=== PATIENT | male | born 1980 | race Caucasian/White ===

== ENCOUNTER 2016-05-15 21:26 | Emergency (ER) | payer SELFPAY ==
[2016-05-15 21:41] VITALS: BP 122/66; PULSE 79; RESP 18; TEMP 97
[2016-05-15] MEDS ORDERED: HYDROcodone/APAP 5-325MG 1 EACH TAB PO STA (23:01)
--- NOTE | 2016-05-15 23:03 | ED ---
ENT HPI - General Chief complaint: Dental/Oral Stated complaint: dental pain Time Seen by Provider: 05/15/16 22:21 Source: patient, RN notes reviewed Mode of arrival: ambulatory Limitations: no limitations - History of Present Illness Initial comments: Patient is a 35-year-old male who presents to the emergency room for evaluation of dental pain. Patient states he began having abdominal pain about a week ago. Patient states he went to [facility] and they place him on a starter pack of Pen-Vee K. Patient states the Pen-Vee K has not been helping so he stopped taking it. Patient states she has not followed up with a dentist yet. Patient states the pain became getting worse throughout the day today. Patient states been taking ibuprofen with no relief of symptoms. Patient states the pain is radiating from his left upper tooth into his left ear. Patient states he thinks broke his tooth. Patient denies any fevers or chills. Patient denies any facial swelling. Patient denies nausea or vomiting. - Related Data Previous Rx's Medication Instructions Recorded Fluticasone Nasal [place] [Flonase 1 spray EA NOSTRIL DAILY PRN #1 11/24/15 Nasal [place]] bottle Promethaz-Cod 6.25-10 mg/5 ml 5 ml PO Q6HR PRN #35 ml 11/24/15 [Phenergan with Codeine] guaiFENesin [Mucinex] 1,200 mg PO BID PRN #14 tab.er.12h 11/24/15 Clindamycin [Cleocin] 300 mg PO Q6H 7 Days 05/15/16 HYDROcodone/APAP 5-325MG [[place] 1 tab PO Q6HR PRN #10 tab 05/15/16 5-325] Allergies Allergy/AdvReac Type Severity Reaction Status Date / Time No Known Allergies Allergy Verified 05/15/16 21:40 Review of Systems ROS Statement: Those systems with pertinent positive or pertinent negative responses have been documented in the HPI. ROS Other: All systems not noted in ROS Statement are negative. Past Medical History Past Medical History: No Reported History History of Any Multi-Drug Resistant Organisms: None Reported Past Surgical History: No Surgical Hx Reported Past Psychological History: No Psychological Hx Reported Smoking Status: Never smoker Past Alcohol Use History: None Reported Past Drug Use History: None Reported General Exam - General Exam Comments Initial Comments: Sitting on exam bed in no acute distress. Limitations: no limitations General appearance: alert, in no apparent distress Head exam: Present: atraumatic, normocephalic, normal inspection Eye exam: Present: normal appearance Expanded Mouth exam: Present: normal external inspection Teeth exam: Present: dental tenderness # (14) Throat exam: normal inspection Neck exam: Present: normal inspection Respiratory exam: Absent: respiratory distress Extremities exam: Present: normal inspection Back exam: Present: normal inspection Neurological exam: Present: alert, oriented X3, CN II-XII intact, normal gait Psychiatric exam: Present: normal affect, normal mood Skin exam: Present: warm, dry, intact, normal color. Absent: rash Course Vital Signs 05/15/16 21:38 Temperature 97.0 F L Pulse Rate 79 Respiratory 18 Rate Blood Pressure 122/66 O2 Sat by Pulse 97 Oximetry Medical Decision Making - Medical Decision Making Patient is a 35-year-old male presents emergency room for a recent dental pain. Will start patient on clindamycin and pain medications and advised him to follow -up with a dentist. Patient states he understands everything that was discussed with him. Return parameters discussed. Disposition Clinical Impression: Pain, dental Disposition: HOME SELF-CARE Condition: Good Instructions: Toothache (ED) Additional Instructions: Please follow up with a dentist. If you do not have a dentist, you may contact [facility]. Phone number is [phone] for existing clients. For new clients you may call [phone]. Another option is you have is the [employer] [facility]. Phone number is [phone]. Medications as directed. [place] gargles. Cold fluids can sometimes help with pain as well. Return to the Emergency Room for any worsening or changing symptoms. Use cold compresses to the outside of the face. Prescriptions: HYDROcodone/APAP 5-325MG [[place] 5-325] 1 tab PO Q6HR PRN #10 tab PRN Reason: Pain Clindamycin [Cleocin] 300 mg PO Q6H 7 Days Referrals: None,Stated [Primary Care Provider] - 1-2 days Time of Disposition: 23:02
== END 2016-05-15 23:15 | disposition home or self-care (01) ==
LOC: EC 21:26
DX: K08.89 Other specified disorders of teeth and supporting structures (principal); R10.9 Unspecified abdominal pain; H92.02 Otalgia, left ear
CPT/HCPCS: 99282

== ENCOUNTER 2017-01-23 15:00 | Emergency (ER) | payer OTHER ==
[2017-01-23 15:14] VITALS: BP 128/59; PULSE 72; RESP 18; TEMP 97.8
[2017-01-23] MEDS ORDERED: NAPROXEN 250 MG TAB PO STA (16:31)
[2017-01-23] MEDS ORDERED: diphenhydrAMINE 50 MG CAP PO STA (16:31)
[2017-01-23] MEDS ORDERED: PROCHLORPERAZINE 5 MG TAB PO STA (16:35)
--- NOTE | 2017-01-23 16:35 | ED ---
General Adult HPI - General Chief complaint: Headache Stated complaint: headaches Time Seen by Provider: 01/23/17 16:24 Source: patient, RN notes reviewed Mode of arrival: ambulatory Limitations: no limitations - History of Present Illness Initial comments: Patient 36-year-old male significant past medical history for migraine headaches , who presents emergency room today with a chief complaint of a migraine to the back of his head. Patient states this started last night. He does admit to some nausea. He states consistent with headaches that is had in the past. Patient denies any new symptoms today. Denies any other complaints or symptoms at this time. Patient denies any recent fever, chills, shortness of breath, chest pain, back pain, abdominal pain, vomiting, numbness or tingling, dysuria or hematuria, constipation or diarrhea, visual changes, or any other complaints. - Related Data Previous Rx's Medication Instructions Recorded Fluticasone Nasal [place] [Flonase 1 spray EA NOSTRIL DAILY PRN #1 11/24/15 Nasal [place]] bottle Promethaz-Cod 6.25-10 mg/5 ml 5 ml PO Q6HR PRN #35 ml 11/24/15 [Phenergan with Codeine] guaiFENesin [Mucinex] 1,200 mg PO BID PRN #14 tab.er.12h 11/24/15 Clindamycin [Cleocin] 300 mg PO Q6H 7 Days capsule 05/15/16 HYDROcodone/APAP 5-325MG [[place] 1 tab PO Q6HR PRN #10 tab 05/15/16 5-325] Naproxen [Naprosyn] 500 mg PO BID #20 tablet 01/23/17 Allergies Allergy/AdvReac Type Severity Reaction Status Date / Time No Known Allergies Allergy Verified 01/23/17 15:14 Review of Systems ROS Statement: Those systems with pertinent positive or pertinent negative responses have been documented in the HPI. ROS Other: All systems not noted in ROS Statement are negative. Past Medical History Past Medical History: No Reported History Additional Past Medical History / Comment(s): migraine hobbs History of Any Multi-Drug Resistant Organisms: None Reported Past Surgical History: No Surgical Hx Reported Past Psychological History: No Psychological Hx Reported Smoking Status: Never smoker Past Alcohol Use History: None Reported Past Drug Use History: None Reported General Exam - General Exam Comments Initial Comments: General: The patient is awake and alert, in no distress, and does not appear acutely ill. Eye: Pupils are equal, round and reactive to light, extra-ocular movements are intact. No nystagmus. There is normal conjunctiva bilaterally. No signs of icterus. Ears, nose, mouth and throat: There are moist mucous membranes and no oral lesions. Neck: The neck is supple, there is no tenderness or JVD. Cardiovascular: There is a regular rate and rhythm. No murmur, rub or gallop is appreciated. Respiratory: Lungs are clear to auscultation, respirations are non-labored, breath sounds are equal. No wheezes, stridor, rales, or rhonchi. Musculoskeletal: Normal ROM, no tenderness. Strength 5/5. Sensation intact. Pulses equal bilaterally 2+. Neurological: A&O x 3. CN II-XII intact, There are no obvious motor or sensory deficits. Coordination appears grossly intact. Speech is normal. Skin: Skin is warm and dry and no rashes or lesions are noted. Psychiatric: Cooperative, appropriate mood & affect, normal judgment. Limitations: no limitations Course Vital Signs 01/23/17 15:12 Temperature 97.8 F Pulse Rate 72 Respiratory 18 Rate Blood Pressure 128/59 O2 Sat by Pulse 96 Oximetry Medical Decision Making - Medical Decision Making options discussed with patient about treatment with IV medication versus by mouth. He states he would like the just have pills. States he does not want have an IV. Patient does admit that this headache is consistent with headaches that is had in the past. A be treated with Compazine, Benadryl, naproxen. He' ll be given a prescription for naproxen ago with burning rebound headache. Disposition Clinical Impression: Migraine Disposition: HOME SELF-CARE Condition: Good Instructions: Acute Headache (ED) Additional Instructions: Please use medication as discussed. Please follow-up with family doctor in the next 2 days of symptoms have not improved. Please return to emergency room if the symptoms increase or worsen or for any other concerns. Prescriptions: Naproxen [Naprosyn] 500 mg PO BID #20 tablet Referrals: Yenifer Brown MD [Primary Care Provider] - 1-2 days Time of Disposition: 16:34
== END 2017-01-23 16:50 | disposition home or self-care (01) ==
LOC: EC 15:00
DX: G43.909 Migraine, unspecified, not intractable, without status migrainosus (principal)
CPT/HCPCS: 99283; S0183

== ENCOUNTER 2018-05-25 22:09 | Emergency (ER) | payer OTHER ==
[2018-05-25 22:25] VITALS: BP 136/89; PULSE 91; RESP 18; TEMP 98.6
[2018-05-25] MEDS ORDERED: AZITHROMYCIN 500 MG TAB PO STA (23:15)
[2018-05-25] MEDS ORDERED: cefTRIAXone 250 MG VIAL IM STA (23:15)
--- NOTE | 2018-05-25 23:19 | ED ---
General Adult HPI - General Chief complaint: Urogenital Stated complaint: STD testing Time Seen by Provider: 05/25/18 22:34 Source: patient, RN notes reviewed, old records reviewed Mode of arrival: ambulatory Limitations: no limitations - History of Present Illness Initial comments: 37-year-old male presents for evaluation of possible STD. Patient states he was told his ex- may have sexual transmitted disease. Patient denies any symptoms, no dysuria, no penile lesions. No posterior show symptoms. No fever chills. No hematuria. Patient has no previous history of STDs. He has not been sexually active with his ex- in the past one month. - Related Data Previous Rx's Medication Instructions Recorded Fluticasone Nasal [place] [Flonase 1 spray EA NOSTRIL DAILY PRN #1 11/24/15 Nasal [place]] bottle Promethaz-Cod 6.25-10 mg/5 ml 5 ml PO Q6HR PRN #35 ml 11/24/15 [Phenergan with Codeine] guaiFENesin [Mucinex] 1,200 mg PO BID PRN #14 tab.er.12h 11/24/15 Clindamycin [Cleocin] 300 mg PO Q6H 7 Days capsule 05/15/16 HYDROcodone/APAP 5-325MG [[place] 1 tab PO Q6HR PRN #10 tab 05/15/16 5-325] Naproxen [Naprosyn] 500 mg PO BID #20 tablet 01/23/17 Allergies Allergy/AdvReac Type Severity Reaction Status Date / Time No Known Allergies Allergy Verified 05/25/18 22:25 Review of Systems ROS Statement: Those systems with pertinent positive or pertinent negative responses have been documented in the HPI. ROS Other: All systems not noted in ROS Statement are negative. Past Medical History Past Medical History: No Reported History Additional Past Medical History / Comment(s): migraine hobbs History of Any Multi-Drug Resistant Organisms: None Reported Past Surgical History: No Surgical Hx Reported Past Psychological History: No Psychological Hx Reported Smoking Status: Never smoker Past Alcohol Use History: None Reported Past Drug Use History: None Reported General Exam Limitations: no limitations Course Vital Signs 05/25/18 22:22 Temperature 98.6 F Pulse Rate 91 Respiratory 18 Rate Blood Pressure 136/89 O2 Sat by Pulse 97 Oximetry Medical Decision Making - Medical Decision Making 37 -year-old male presenting for evaluation of STDs. Patient is informed that we only will be testing for gonorrhea and chlamydia. Patient prefers to be treated for both gonorrhea and chlamydia. He is informed that we are not testing for syphilis, herpes, HIV. He will need follow-up with his primary care physician regarding further testing. Patient wishes to be treated today, will be given azithromycin and ceftriaxone. Urinalysis, urine culture, GC, chlamydia PCR will be obtained. These are pending. Disposition Clinical Impression: STD exposure Disposition: HOME SELF-CARE Condition: Good Instructions (If sedation given, give patient instructions): Sexually Transmitted Diseases (ED) Is patient prescribed a controlled substance at d/c from ED?: No Referrals: Yenifer Brown MD [Primary Care Provider] - 1-2 days Time of Disposition: 23:19
[2018-05-25 23:29] LABS: Appearance,Urine Clear (Clear); Bilirubin,Urine Negative (Negative); Blood,Urine Negative (Negative); Color,Urine Yellow; Glucose,Urine (UA) Negative (Negative); Ketones,Urine Negative (Negative); Leukocyte Esterase,Urine Small (Negative); Mucus,Urine Few /hpf; Nitrite,Urine Negative (Negative); PH, Urine 5.5 (5.0-8.0); Protein,Urine Trace (Negative); RBC,Urine 1 /hpf (0-5); Specific Gravity,Urine 1.031 (1.001-1.035); Squamous Epithelial Cell,Urine 1 /hpf (0-4); Urobilinogen,Urine <2.0 mg/dL (<2.0); WBC,Urine 10 /hpf (0-5)
--- NOTE | 2018-05-27 05:10 | CDI ---
Dear Damian Myrick MD: Please do addendum Physical Examination. Thank you, Lamin Coleman, Human Resources Vice President. If you have any questions, please contact Medical Staff Coordinator at [phone]. [facility]
[2018-05-28 15:18] LABS: C. trachomatis,PCR Negative (Neg,Equiv); Chlamydia trachomatis Source Urine
[2018-05-28 15:35] LABS: N. gonorrhoeae,PCR Negative (Neg,Equiv); Neisseria Source Urine
== END 2018-05-25 23:53 | disposition home or self-care (01) ==
LOC: EC 22:09
DX: Z20.2 Contact with and (suspected) exposure to infections with a predominantly sexual mode of transmission (principal)
CPT/HCPCS: 99284; 96372; 81001; 87491; 87591; 87086; J0696

== ENCOUNTER 2018-09-08 14:35 | Emergency (ER) | payer OTHER ==
[2018-09-08 14:41] VITALS: RESP 18
[2018-09-08] MEDS ORDERED: ASPIRIN 325 MG TAB PO STA (14:44)
--- NOTE | 2018-09-08 15:20 | ED ---
General Adult HPI - General Chief complaint: Dizziness Stated complaint: Palpitations Time Seen by Provider: 09/08/18 14:43 Source: patient Mode of arrival: ambulatory Limitations: no limitations - History of Present Illness Initial comments: 38-year-old male presenting for lightheadedness and chest pain. Patient states yesterday between 11-12PM he experienced a sharp pinch in his chest left-sided. He states it lasted about 30 minutes and subsided. He states it began again about 30 minute prior to arrival he states this concerned him and he presents emergency department for evaluation. Patient states he does not feel short of breath today he states he did feel slightly short of breath yesterday. Patient denies history of smoking diabetes or hypertension plan. Patient denies history of coronary artery disease within the family history. Patient denies any premature cardiac , or unexpected or unexplained in family. Patient denies unilateral leg swelling history of pulmonary embolism or DVT denies any clotting disorders, patient denies any hormone use, denies recent surgeries or immobilization, denies recent fractures, patient denies hemoptysis, leg swelling or history of cancer. Patient denies IV drug use fever chills night sweats cough. Patient states he is not sure if his symptoms are related to his recent break up with girlfriend who left him for his ex two days prior. He states he has been stressed. She denies any patterns with the chest pain he states occurred last night. He denies any recent exertional chest pain or shortness of breath. Upon arrival patient denies current chest pain, remaining ROS (-). - Related Data Home Medications Medication Instructions Recorded Confirmed No Known Home Medications 09/08/18 09/08/18 Allergies Allergy/AdvReac Type Severity Reaction Status Date / Time No Known Allergies Allergy Verified 09/08/18 15:02 Review of Systems ROS Statement: Those systems with pertinent positive or pertinent negative responses have been documented in the HPI. ROS Other: All systems not noted in ROS Statement are negative. Past Medical History Past Medical History: No Reported History Additional Past Medical History / Comment(s): migraine hobbs History of Any Multi-Drug Resistant Organisms: None Reported Past Surgical History: No Surgical Hx Reported Past Psychological History: No Psychological Hx Reported Smoking Status: Never smoker Past Alcohol Use History: None Reported Past Drug Use History: None Reported General Exam - General Exam Comments Initial Comments: General: The patient is awake and alert, in no distress, and does not appear acutely ill. Eye: Pupils are equal, round and reactive to light, extra-ocular movements are intact. No nystagmus. There is normal conjunctiva bilaterally. No signs of icterus. Ears, nose, mouth and throat: There are moist mucous membranes and no oral le sions. Neck: The neck is supple, there is no tenderness or JVD. Cardiovascular: There is a regular rate and rhythm. No murmur, rub or gallop is appreciated. Respiratory: Lungs are clear to auscultation, respirations are non-labored, breath sounds are equal. No wheezes, stridor, rales, or rhonchi. Gastrointestinal: Soft, non-distended, non-tender abdomen without masses or organomegaly noted. There is no rebound or guarding present. No CVA tenderness. Bowel sounds are unremarkable. Musculoskeletal: Normal ROM, no tenderness. Strength 5/5. Sensation intact. Radial and DP pulses equal bilaterally 2+. No LE edema Neurological: A&O x 3. CN II-XII intact, There are no obvious motor or sensory deficits. Coordination appears grossly intact. Speech is normal. Skin: Skin is warm and dry and no rashes or lesions are noted. Psychiatric: Cooperative, appropriate mood & affect, normal judgment. Limitations: no limitations Course Vital Signs 09/08/18 09/08/18 09/08/18 14:37 15:00 16:00 Temperature 97.9 F Pulse Rate 95 72 88 Respiratory 18 18 18 Rate Blood Pressure 134/78 126/87 130/88 O2 Sat by Pulse 98 99 99 Oximetry 09/08/18 16:51 Temperature 98.1 F Pulse Rate 75 Respiratory 18 Rate Blood Pressure 130/89 O2 Sat by Pulse 100 Oximetry EKG Findings - EKG Comments: EKG Findings:: Ventricular rate 76 bpm, DE interval 160 ms, QRS duration 80 ms. QT/QTC 370/416. Right axis noted. No ST elevation or depression. No T-wave inversion. Artifact noted. No acute findings. Medical Decision Making - Medical Decision Making 38yo male without PMH, presenting with sharp chest pain on off x 1 day. Patient states he is stressed, feel anxious since break up with ex. Chest pain appears atypical in nature. EKG no findings consistent with ACS. Trop (-). CXR (-). PERC (-). No findings on PE. No leg swelling. No murmur. Lungs clear. Patient denies current symptoms. Patinet requesting discharge. After discussing case and reviewing EKG with attending Dr. Oropeza we feel patient stable for discharge with outpatient PCP f/u. Patient agreeable with return parameters and pcp f/u. - Lab Data Result diagrams: 09/08/18 15:05 09/08/18 15:05 Lab Results 09/08/18 09/08/18 09/08/18 Range/Units 15:05 15:05 15:05 WBC 8.8 (3.8-10.6) k/uL RBC 5.78 (4.30-5.90) m/uL Hgb 15.9 (13.0-17.5) gm/dL Hct 48.8 (39.0-53.0) % MCV 84.4 (80.0-100.0) fL MCH 27.5 (25.0-35.0) pg MCHC 32.6 (31.0-37.0) g/dL RDW 13.0 (11.5-15.5) % Plt Count 193 (150-450) k/uL Neutrophils % 71 % Lymphocytes % 21 % Monocytes % 5 % Eosinophils % 1 % Basophils % 0 % Neutrophils # 6.2 (1.3-7.7) k/uL Lymphocytes # 1.9 (1.0-4.8) k/uL Monocytes # 0.4 (0-1.0) k/uL Eosinophils # 0.1 (0-0.7) k/uL Basophils # 0.0 (0-0.2) k/uL PT 10.6 (9.0-12.0) sec INR 1.0 (<1.2) APTT 27.8 (22.0-30.0) sec Sodium 142 (137-145) mmol/L Potassium 4.1 (3.5-5.1) mmol/L Chloride 108 H (98-107) mmol/L Carbon Dioxide 25 (22-30) mmol/L Anion Gap 9 mmol/L BUN 14 (9-20) mg/dL Creatinine 0.93 (0.66-1.25) mg/dL Est GFR (CKD-EPI)AfAm >90 (>60 ml/min/1.73 sqM) Est GFR (CKD-EPI)NonAf >90 (>60 ml/min/1.73 sqM) Glucose 100 H (74-99) mg/dL Calcium 9.4 (8.4-10.2) mg/dL Magnesium 2.0 (1.6-2.3) mg/dL Total Bilirubin 0.8 (0.2-1.3) mg/dL AST 23 (17-59) U/L ALT 29 (21-72) U/L Alkaline Phosphatase 63 (38-126) U/L Troponin I (0.000-0.034) ng/mL Total Protein 7.2 (6.3-8.2) g/dL Albumin 4.3 (3.5-5.0) g/dL / Range/Units 15:05 WBC (3.8-10.6) k/uL RBC (4.30-5.90) m/uL Hgb (13.0-17.5) gm/dL Hct (39.0-53.0) % MCV (80.0-100.0) fL MCH (25.0-35.0) pg MCHC (31.0-37.0) g/dL RDW (11.5-15.5) % Plt Count (150-450) k/uL Neutrophils % % Lymphocytes % % Monocytes % % Eosinophils % % Basophils % % Neutrophils # (1.3-7.7) k/uL Lymphocytes # (1.0-4.8) k/uL Monocytes # (0-1.0) k/uL Eosinophils # (0-0.7) k/uL Basophils # (0-0.2) k/uL PT (9.0-12.0) sec INR (<1.2) APTT (22.0-30.0) sec Sodium (137-145) mmol/L Potassium (3.5-5.1) mmol/L Chloride (98-107) mmol/L Carbon Dioxide (22-30) mmol/L Anion Gap mmol/L BUN (9-20) mg/dL Creatinine (0.66-1.25) mg/dL Est GFR (CKD-EPI)AfAm (>60 ml/min/1.73 sqM) Est GFR (CKD-EPI)NonAf (>60 ml/min/1.73 sqM) Glucose (74-99) mg/dL Calcium (8.4-10.2) mg/dL Magnesium (1.6-2.3) mg/dL Total Bilirubin (0.2-1.3) mg/dL AST (17-59) U/L ALT (21-72) U/L Alkaline Phosphatase (38-126) U/L Troponin I <0.012 (0.000-0.034) ng/mL Total Protein (6.3-8.2) g/dL Albumin (3.5-5.0) g/dL Disposition Clinical Impression: Atypical chest pain, Stress Disposition: HOME SELF-CARE Condition: Good Instructions (If sedation given, give patient instructions): Chest Pain (ED), Noncardiac Chest Pain (ED) Additional Instructions: Please use medication as discussed. Please follow-up with family doctor in the next 2 days. Please return to emergency room if the symptoms increase or worsen or for any other concerns. Is patient prescribed a controlled substance at d/c from ED?: No Referrals: Yenifer Brown MD [Primary Care Provider] - 1-2 days Time of Disposition: 16:38
[2018-09-08 15:22] LABS: Basophils % (A) 0 %; Eosinophils # (A) 0.1 k/uL (0-0.7); Eosinophils % (A) 1 %; HCT 48.8 % (39.0-53.0); HGB 15.9 gm/dL (13.0-17.5); Lymphocytes # (A) 1.9 k/uL (1.0-4.8); Lymphocytes % (A) 21 %; MCH 27.5 pg (25.0-35.0); MCHC 32.6 g/dL (31.0-37.0); MCV 84.4 fL (80.0-100.0); Mean Platelet Volume 8.6; Monocytes # (A) 0.4 k/uL (0-1.0); Monocytes % (A) 5 %; Neutrophils # (A) 6.2 k/uL (1.3-7.7); Neutrophils % (A) 71 %; Platelet Count 193 k/uL (150-450); RBC 5.78 m/uL (4.30-5.90); WBC 8.8 k/uL (3.8-10.6)
[2018-09-08 15:32] LABS: ALT 29 U/L (21-72); AST 23 U/L (17-59); African American GFR (CKD) >90 (>60 ml/min/1.73 sqM); Albumin 4.3 g/dL (3.5-5.0); Alkaline Phosphatase 63 U/L (38-126); Anion Gap 9 mmol/L; Blood Urea Nitrogen 14 mg/dL (9-20); Calcium 9.4 mg/dL (8.4-10.2); Carbon Dioxide 25 mmol/L (22-30); Chloride 108 mmol/L (98-107); Glucose 100 mg/dL (74-99); Potassium 4.1 mmol/L (3.5-5.1); Sodium 142 mmol/L (137-145); Total Bilirubin 0.8 mg/dL (0.2-1.3); Total Protein 7.2 g/dL (6.3-8.2)
[2018-09-08 15:35] LABS: Partial Thromboplastin Time 27.8 sec (22.0-30.0); Prothrombin Time 10.6 sec (9.0-12.0)
--- NOTE | 2018-09-08 16:15 | XR ---
EXAMINATION TYPE: XR chest 2V DATE OF EXAM: 09/08/2018 COMPARISON: Chest x-ray November 24, 2015. HISTORY: Chest pain and dizziness. TECHNIQUE: Frontal and lateral views of the chest are obtained. FINDINGS: Overlying EKG leads are seen. There is no focal air space opacity, pleural effusion, or pn eumothorax seen. The cardiac silhouette size is within normal limits. The osseous structures are i ntact. IMPRESSION: No acute cardiopulmonary process. No significant change from prior.
[2018-09-08 16:52] VITALS: BP 130/89; PULSE 75; TEMP 98.1
== END 2018-09-08 16:51 | disposition home or self-care (01) ==
LOC: EC 14:35
DX: R07.89 Other chest pain (principal); Z63.0 Problems in relationship with spouse or partner; R42 Dizziness and giddiness
CPT/HCPCS: 36415; 71046; 80053; 83735; 84484; 85025; 85610; 85730; 93005; 99284

== ENCOUNTER 2019-05-21 21:46 | Emergency (ER) | payer OTHER ==
[2019-05-21] MEDS ORDERED: KETOROLAC 30 MG/ML 1 ML VIAL IM STA (22:22)
--- NOTE | 2019-05-21 22:40 | XR ---
EXAMINATION TYPE: XR wrist complete RT DATE OF EXAM: 05/21/2019 COMPARISON: NONE HISTORY: Pain TECHNIQUE: 4 views FINDINGS: Carpal bones are intact. I see no fracture nor dislocation. Joint spaces are normal. Metaca rpals appear intact. IMPRESSION: Negative right wrist exam.
--- NOTE | 2019-05-21 23:16 | ED ---
Extremity Problem HPI - General Chief complaint: Extremity Problem,Nontraumatic Stated complaint: R Wrist Pain Time Seen by Provider: 05/21/19 21:52 Source: patient Mode of arrival: ambulatory Limitations: no limitations - History of Present Illness Initial comments: Patient is a 38-year-old male presenting to the emergency department with a chief complaint of right wrist pain. Patient states over the past 2-3 days he developed swelling on the posterior aspect aspect of the right wrist, localized mostly to the radial region. 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 Patient states he is right-handed. Denies any trauma to the region. States limited range of motion with extension of the wrist. Patient states limited range of motion with extension of the thumb as well. Denies any erythema or ecchymosis in the region. Does report taken [id number] analgesics with some improvement of symptoms at home. No previous surgery to the hand. - Related Data Home Medications Medication Instructions Recorded Confirmed No Known Home Medications 09/08/18 09/08/18 Allergies Allergy/AdvReac Type Severity Reaction Status Date / Time No Known Allergies Allergy Verified 05/21/19 21:50 Review of Systems ROS Statement: Those systems with pertinent positive or pertinent negative responses have been documented in the HPI. ROS Other: All systems not noted in ROS Statement are negative. Past Medical History Past Medical History: No Reported History Additional Past Medical History / Comment(s): migraine hobbs History of Any Multi-Drug Resistant Organisms: None Reported Past Surgical History: No Surgical Hx Reported Past Psychological History: No Psychological Hx Reported Smoking Status: Never smoker Past Alcohol Use History: None Reported Past Drug Use History: None Reported General Exam Limitations: no limitations General appearance: alert, in no apparent distress Head exam: Present: atraumatic, normocephalic, normal inspection Eye exam: Present: normal appearance, PERRL, EOMI Pupils: Present: normal accommodation ENT exam: Present: normal exam Neck exam: Present: normal inspection, full ROM Respiratory exam: Present: normal lung sounds bilaterally Cardiovascular Exam: Present: regular rate, normal rhythm, normal heart sounds Extremities exam: Present: tenderness (Tenderness along the region of swelling. Tenderness along the radial aspect of her right wrist.), normal capillary refill, other (+2 ulnar and radial pulses bilaterally.). Absent: normal inspection (Mild swelling on the posterior aspect her right wrist near the radial region. No ecchymosis or erythema. No signs of trauma.), full ROM (Limited range of motion with extension of the right wrist or extension of the thumb.) Back exam: Present: normal inspection, full ROM Neurological exam: Present: alert, oriented X3 Psychiatric exam: Present: normal affect, normal mood Skin exam: Present: warm, dry, intact, normal color Course Vital Signs 05/21/19 21:48 Temperature 98.4 F Pulse Rate 91 Respiratory 18 Rate Blood Pressure 125/85 O2 Sat by Pulse 98 Oximetry Procedures - Orthopedic Splinting/Casting Injury #1 Side: right Upper Extremity Injury Location: wrist Upper Extremity Immobilizer: Fabián wrap Medical Decision Making - Medical Decision Making Patient is a 38-year-old male presenting to emergency Department with a chief complaint right wrist pain or exam patient does have a negative Tylenol and negative Phalen test. Patient does have a positive Fabiola test. Patient does have swelling along the radial aspect of the right wrist. X-rays are unremarkable. 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 Patient is right-handed. I suspect the patient has the dequervian tenosynovitis. Fabián wrap was applied to the region. Patient advised to continue with ibuprofen 3 times a day as needed. Patient was advised to remove the Fabián wrap multiple times per day and move the wrist and full range of motion. Patient was advised to apply ice compresses well. Patient was advised to follow-up with investor relations specialist if symptoms not improved. Return parameters thoroughly discussed with patient was understanding and agreeable. Case discussed with physician. Disposition Clinical Impression: De Quervain's disease (radial styloid tenosynovitis), Wrist pain, right Disposition: HOME SELF-CARE Condition: Stable Instructions (If sedation given, give patient instructions): DeQuervain Release (DC) Additional Instructions: Take ibuprofen 3 times per day as needed. Apply ice compress. Make sure to remove the Fabián wrap and rotate your wrist to full range of motion. Follow-up with an investor relations specialist if symptoms not improved. Return to emergency department if symptoms worsen. Is patient prescribed a controlled substance at d/c from ED?: No Referrals: Yenifer Brown MD [Primary Care Provider] - 1-2 days Time of Disposition: 23:16
[2019-05-21 23:18] VITALS: BP 126/87; PULSE 71; RESP 16; TEMP 98.3
== END 2019-05-21 23:20 | disposition home or self-care (01) ==
LOC: EC 21:46
DX: M65.4 Radial styloid tenosynovitis [de Quervain] (principal)
CPT/HCPCS: 73110; 99283; 96372; J1885

== ENCOUNTER 2019-05-28 23:50 | Emergency (ER) | payer OTHER ==
[2019-05-28 23:58] VITALS: BP 144/93; PULSE 74; RESP 18; TEMP 97.5
--- NOTE | 2019-05-29 00:08 | ED ---
ENT HPI - General Chief complaint: Dental/Oral Stated complaint: Jaw/tooth pain Time Seen by Provider: 05/28/19 23:58 Source: patient, family Mode of arrival: ambulatory Limitations: no limitations - History of Present Illness Initial comments: 38-year-old male presenting today for chief complaint of right lower dental pain. Patient states that he has had right lower dental pain for the past few days, he states he had the tooth next to it pulled 2 weeks ago, it seemed to heal. But he states they were supposed to take the took that is problematic now 2 weeks ago. patient has attempted to call multiple dental offices which are closed secondary to pandemic. Patient denies fever, facial or neck swelling, denies swelling below tongue, difficulty opening mouth, nor swallowing. - Related Data Previous Rx's Medication Instructions Recorded Penicillin V Potassium [Pen Vee K] 500 mg PO QID 7 Days #28 tablet 05/29/19 Allergies Allergy/AdvReac Type Severity Reaction Status Date / Time No Known Allergies Allergy Verified 05/21/19 21:50 Review of Systems ROS Statement: Those systems with pertinent positive or pertinent negative responses have been documented in the HPI. ROS Other: All systems not noted in ROS Statement are negative. Past Medical History Past Medical History: No Reported History Additional Past Medical History / Comment(s): migraine hobbs History of Any Multi-Drug Resistant Organisms: None Reported Past Surgical History: No Surgical Hx Reported Past Psychological History: No Psychological Hx Reported Smoking Status: Never smoker Past Alcohol Use History: None Reported Past Drug Use History: None Reported General Exam - General Exam Comments Initial Comments: General: The patient is awake and alert, in no distress, and does not appear acutely ill. Eye: +3 mm pupils are equal, round and reactive to light, extra-ocular movements are intact. No nystagmus. There is normal conjunctiva bilaterally. No signs of icterus. Ears, nose, mouth and throat: There are moist mucous membranes, tooth #28 has no adjacent looks once her swelling is tender to percussion. There is no swelling below the tongue or below the angle of the mandible. No trismus. Patient tolerating oral secretions. Uvula midline. Neck: The neck is supple, there is no tenderness or JVD. Musculoskeletal: Normal ROM, no tenderness. Strength 5/5. Sensation intact. Radila pulses equal bilaterally 2+. Neurological: A&O x 3. CN II-XII intact grossly, There are no obvious motor or sensory deficits. Coordination appears grossly intact. Speech is normal. Skin: Skin is warm and dry and no rashes or lesions are noted. Psychiatric: Cooperative, appropriate mood & affect, normal judgment. Limitations: no limitations Course Vital Signs 05/28/19 23:54 Temperature 97.5 F L Pulse Rate 74 Respiratory 18 Rate Blood Pressure 144/93 O2 Sat by Pulse 97 Oximetry Medical Decision Making - Medical Decision Making 38-year-old male presented for right lower dental pain. Patient had no signs of Eulalio's angina or systemic spread of infection he appears well nontoxic. Patient will be discharged with antibiotic regimen and instruction to follow up with dentist for extraction of the tooth. Discussed return parameters importance of follow-up. Patient is provided resources for free and reduced as well as emergency clinics. Patient was agreeable to care plan and discharge at this time. Disposition Clinical Impression: Pain, dental Disposition: HOME SELF-CARE Condition: Good Instructions (If sedation given, give patient instructions): Dental Abscess (ED), Toothache (ED) Additional Instructions: Please use medication as discussed. Please follow-up with dentist as discussed, recommend going to [facility] if unable to get an appointment in [facility] as discussed. Please return to emergency room if the symptoms increase or worsen or for any other concerns-fevers, neck/face swelling, swelling below the tongue. Prescriptions: Penicillin V Potassium [Pen Vee K] 500 mg PO QID 7 Days #28 tablet Is patient prescribed a controlled substance at d/c from ED?: No Referrals: Yenifer Brown MD [Primary Care Provider] - 1-2 days Time of Disposition: 00:15
[2019-05-29] MEDS ORDERED: HYDROcodone/APAP 7.5-325MG 1 EACH TAB PO ONE (00:14)
[2019-05-29] MEDS ORDERED: ACET/COD 300 MG/30 MG STARTER PACK 6 TAB BTL PO STA (00:14)
[2019-05-29] MEDS ORDERED: PENICILLIN VK 500MG STARTER 4 TAB BTL PO STA (00:15)
== END 2019-05-29 00:34 | disposition home or self-care (01) ==
LOC: EC 23:50
DX: K08.89 Other specified disorders of teeth and supporting structures (principal); Z98.818 Other dental procedure status
CPT/HCPCS: 99283

== ENCOUNTER 2019-09-22 05:44 | Emergency (ER) | payer OTHER ==
[2019-09-22 05:50] VITALS: BP 132/82; PULSE 69; RESP 18; TEMP 98.3
[2019-09-22] MEDS ORDERED: ACET/COD 300 MG/30 MG STARTER PACK 6 TAB BTL PO STA (06:02)
[2019-09-22] MEDS ORDERED: AMOXIC-POT CLAV 875MG STARTER PACK 2 TAB BTL PO STA (06:02)
--- NOTE | 2019-09-22 06:16 | ED ---
ENT HPI - General Chief complaint: Dental/Oral Stated complaint: dental pain Time Seen by Provider: 09/22/19 06:00 Source: patient Mode of arrival: ambulatory Limitations: no limitations - History of Present Illness Initial comments: 39-year-old male presenting today for chief complaint of right upper dental pain began for the last 4 hours. Patient denies noting any draining areas or areas of swelling. Denies any swelling below the time of the neck difficulty breathing or swallowing denies any fever chills general malaise. Patient is no additional complaints he states he has had dental infections in the past. Patient denies any trauma to face/teeth. Patient appears nontoxic on arrival - Related Data Previous Rx's Medication Instructions Recorded Penicillin V Potassium [Pen Vee K] 500 mg PO QID 7 Days #28 tablet 05/29/19 Amoxic-Pot Clav 875-125Mg 1 tab PO Q12HR 7 Days #14 tab 09/22/19 [Augmentin 875-125] Allergies Allergy/AdvReac Type Severity Reaction Status Date / Time No Known Allergies Allergy Verified 09/22/19 05:50 Review of Systems ROS Statement: Those systems with pertinent positive or pertinent negative responses have been documented in the HPI. ROS Other: All systems not noted in ROS Statement are negative. Past Medical History Past Medical History: No Reported History Additional Past Medical History / Comment(s): migraine hobbs History of Any Multi-Drug Resistant Organisms: None Reported Past Surgical History: No Surgical Hx Reported Past Psychological History: No Psychological Hx Reported Past Alcohol Use History: None Reported Past Drug Use History: None Reported General Exam - General Exam Comments Initial Comments: General: The patient is awake and alert, in no distress, and does not appear acutely ill. Eye: Pupils are equal, round and reactive to light, extra-ocular movements are intact. No nystagmus. There is normal conjunctiva bilaterally. No signs of icterus. Ears, nose, mouth and throat: There are moist mucous membranes and no oral lesions. Pain to palpation with cracked crown of right upper most posterior molar, no swelling below tongue below the angle of the mandible. No tripoding or drooling tolerate oral secretions well. Evidence of adjacent fluctuant area of the gingiva near tooth of concern Neck: The neck is supple, there is no tenderness or JVD. Musculoskeletal: Normal ROM, no tenderness. Strength 5/5. Sensation intact. Pulses equal bilaterally 2+. Neurological: A&O x 3. CN II-XII intact, There are no obvious motor or sensory deficits. Coordination appears grossly intact. Speech is normal. Skin: Skin is warm and dry and no rashes or lesions are noted. Psychiatric: Cooperative, appropriate mood & affect, normal judgment. Limitations: no limitations Course Vital Signs 09/22/19 05:48 Temperature 98.3 F Pulse Rate 69 Respiratory 18 Rate Blood Pressure 132/82 O2 Sat by Pulse 97 Oximetry Medical Decision Making - Medical Decision Making Exam no abscess evident, cannot r/o periapical. No facial swellling. no signs of ludwigs angina. does not appear toxic. Patient denies fevers. Antibiotics initiated in ER, given tylenol #3 for pain control. Recommend dentist f/u in 24- 48 hours. Patient agreeable and was discharged appearing well. Return parameters discussed. Disposition Clinical Impression: Pain, dental Disposition: HOME SELF-CARE Condition: Good Instructions (If sedation given, give patient instructions): Toothache (ED) Additional Instructions: Please use medication as discussed. Please follow-up with dentist in next 24-48 hours. Please return to emergency room if the symptoms increase or worsen or for any other concerns. Prescriptions: Amoxic-Pot Clav 875-125Mg [Augmentin 875-125] 1 tab PO Q12HR 7 Days #14 tab Is patient prescribed a controlled substance at d/c from ED?: No Referrals: Yenifer Brown MD [Primary Care Provider] - 1-2 days Time of Disposition: 06:16
== END 2019-09-22 06:31 | disposition home or self-care (01) ==
LOC: EC 05:44
DX: K08.89 Other specified disorders of teeth and supporting structures (principal)
CPT/HCPCS: 99282

== ENCOUNTER 2020-01-25 01:24 | Emergency (ER) | payer OTHER ==
[2020-01-25 01:28] VITALS: BP 162/100; PULSE 67; RESP 18; TEMP 98
[2020-01-25] MEDS ORDERED: KETOROLAC 15 MG/ML 1 ML VIAL IM STA (01:39)
[2020-01-25] MEDS ORDERED: ACET/COD 300 MG/30 MG STARTER PACK 6 TAB BTL PO STA (01:39)
[2020-01-25] MEDS ORDERED: MORPHINE SULFATE 4 MG/ML SYRINGE IM STA (01:39)
[2020-01-25] MEDS ORDERED: AMOXIC-POT CLAV 875MG STARTER PACK 2 TAB BTL PO STA (01:39)
--- NOTE | 2020-01-25 01:46 | ED ---
General Adult HPI - General Chief complaint: Dental/Oral Stated complaint: Tooth pain Time Seen by Provider: 01/25/20 01:32 Source: patient Mode of arrival: ambulatory Limitations: no limitations - History of Present Illness Initial comments: 39-year-old male presents to emergency Department with complaints of dental pain, onset 3 hours prior to arrival. Patient states a tooth on his right lower jaw began to hurt more severely after brushing his teeth this evening. Reports a history of dental problems. Denies any trismus or difficulty swallowing. Denies facial swelling. Patient denies any recent rash, fever, chills, cough, shortness of breath, chest pain, abdominal pain, nausea, vomiting, diarrhea, constipation, back pain, numbness, tingling, dizziness, weakness, hematuria, dysuria, urinary urgency, urinary frequency, headache, visual changes, or any other complaints. - Related Data Previous Rx's Medication Instructions Recorded Penicillin V Potassium [Pen Vee K] 500 mg PO QID 7 Days #28 tablet 05/29/19 Amoxic-Pot Clav 875-125Mg 1 tab PO Q12HR 7 Days #14 tab 09/22/19 [Augmentin 875-125] Amoxic-Pot Clav 875-125Mg 1 tab PO Q12HR #20 tablet 01/25/20 [Augmentin 875-125] Ibuprofen [Motrin] 600 mg PO Q8HR PRN #30 tab 01/25/20 Allergies Allergy/AdvReac Type Severity Reaction Status Date / Time No Known Allergies Allergy Verified 01/25/20 01:28 Review of Systems ROS Statement: Those systems with pertinent positive or pertinent negative responses have been documented in the HPI. ROS Other: All systems not noted in ROS Statement are negative. Past Medical History Past Medical History: No Reported History Additional Past Medical History / Comment(s): migraine hobbs History of Any Multi-Drug Resistant Organisms: None Reported Past Surgical History: No Surgical Hx Reported Past Psychological History: No Psychological Hx Reported Smoking Status: Never smoker Past Alcohol Use History: None Reported Past Drug Use History: None Reported General Exam Limitations: no limitations General appearance: alert, in no apparent distress, other (Physical well- developed, well-nourished adult male patient in no acute distress. Vital signs upon presentation are temperature 98.0F, pulse 67, respirations 18, blood pressure 162/100, pulse ox 98% on room air.) Eye exam: Present: normal appearance, PERRL, EOMI. Absent: scleral icterus, conjunctival injection, periorbital swelling ENT exam: Present: mucous membranes moist, other (Very poor dentition, multiple dental caries, multiple fractured teeth. Gingiva is erythematous, swollen, no evidence for drainable abscess.). Absent: normal exam Neck exam: Absent: lymphadenopathy Respiratory exam: Present: normal lung sounds bilaterally. Absent: respiratory distress, wheezes, rales, rhonchi, stridor Cardiovascular Exam: Present: regular rate, normal rhythm, normal heart sounds. Absent: systolic murmur, diastolic murmur, rubs, gallop, clicks Neurological exam: Present: alert, oriented X3, CN II-XII intact Psychiatric exam: Present: normal affect, normal mood Skin exam: Present: warm, dry, intact, normal color. Absent: rash Course Vital Signs 01/25/20 01:26 Temperature 98.0 F Pulse Rate 67 Respiratory 18 Rate Blood Pressure 162/100 O2 Sat by Pulse 98 Oximetry Medical Decision Making - Medical Decision Making 39-year-old male patient presented to the emergency department today for evaluation of right lower dental pain. Physical examination did reveal very poor dentition with multiple dental caries, fractured teeth, and evidence for gingivitis. Patient will be discharged to follow-up with dentistry as soon as possible. We did start Augmentin and give pain medication. Return parameters were discussed in detail. He verbalizes understanding and agrees with this plan. Disposition Clinical Impression: Dental infection Disposition: HOME SELF-CARE Condition: Good Instructions (If sedation given, give patient instructions): Dental Abscess (ED), Toothache (ED) Additional Instructions: Complete antibiotic prescription in full. Follow up with dentistry for recheck as as possible. Take pain medication as directed. Return to the emergency department immediately for any new, worsening, or concerning symptoms. Prescriptions: Amoxic-Pot Clav 875-125Mg [Augmentin 875-125] 1 tab PO Q12HR #20 tablet Ibuprofen [Motrin] 600 mg PO Q8HR PRN #30 tab PRN Reason: Pain Is patient prescribed a controlled substance at d/c from ED?: No Referrals: Yenifer Brown MD [Primary Care Provider] - 1-2 days Time of Disposition: 01:53
== END 2020-01-25 01:58 | disposition home or self-care (01) ==
LOC: EC 01:24
DX: K04.7 Periapical abscess without sinus (principal); K05.10 Chronic gingivitis, plaque induced; S02.5XXA Fracture of tooth (traumatic), initial encounter for closed fracture; K02.9 Dental caries, unspecified; X58.XXXA Exposure to other specified factors, initial encounter
CPT/HCPCS: 99283; 96372 ×2; J2270; J1885

== ENCOUNTER 2020-02-12 19:58 | Emergency (ER) | payer OTHER ==
[2020-02-12 20:08] VITALS: RESP 18
--- NOTE | 2020-02-12 20:58 | ED ---
ENT HPI - General Chief complaint: ENT Stated complaint: Wants COVID Test, Sore Throat Time Seen by Provider: 02/12/20 20:09 Source: patient Mode of arrival: ambulatory Limitations: no limitations - History of Present Illness Initial comments: Patient is a 39-year-old male presenting to the emergency Department with complaints of a mild sore throat and also requesting Covid testing. Patient states he developed a sore throat yesterday and noticed some swelling today. He states he told his work about this and they wanted him to get Covid test. He d enies any fever, chills, cough, chest pain, shortness of breath, nausea or vomiting. Patient denies any nasal discharge or congestion. He denies any further complaints at this time. Upon arrival to the ER his vitals are stable. - Related Data Previous Rx's Medication Instructions Recorded Penicillin V Potassium [Pen Vee K] 500 mg PO BID 10 Days #19 tablet 02/12/20 Allergies Allergy/AdvReac Type Severity Reaction Status Date / Time No Known Allergies Allergy Verified 02/12/20 21:20 Review of Systems ROS Statement: Those systems with pertinent positive or pertinent negative responses have been documented in the HPI. ROS Other: All systems not noted in ROS Statement are negative. Past Medical History Past Medical History: No Reported History Additional Past Medical History / Comment(s): migraine hobbs History of Any Multi-Drug Resistant Organisms: None Reported Past Surgical History: No Surgical Hx Reported Past Psychological History: No Psychological Hx Reported Smoking Status: Never smoker Past Alcohol Use History: None Reported Past Drug Use History: None Reported General Exam - General Exam Comments Initial Comments: GENERAL: Patient is well-developed and well-nourished. Patient is nontoxic and in no acute distress. HEAD: Atraumatic, normocephalic. EYES: Pupils equal round and reactive to light, extraocular movements intact, sclera anicteric, conjunctiva are normal. Eyelids were unremarkable. ENT: TMs normal, nares patent, oropharynx is slightly erythematous, tonsils are mildly enlarged, no exudate present. Moist mucous membranes. NECK: Normal range of motion, supple without lymphadenopathy or JVD. LUNGS: Unlabored respirations. Breath sounds clear to auscultation bilaterally and equal. No wheezes rales or rhonchi. HEART: Regular rate and rhythm without murmurs, rubs or gallops. ABDOMEN: Soft, nontender, normoactive bowel sounds. No guarding, no rebound. No masses appreciated. : Deferred MUSCULOSKELETAL: Normal extremities with adequate strength and normal range of motion, no pitting or edema. No clubbing or cyanosis. NEUROLOGICAL: Patient is alert and oriented x 3. Motor and sensory are also intact. Cranial nerves II through XII grossly intact. Symmetrical smile. Normal speech, normal gait. PSYCH: Normal mood, normal affect. SKIN: Warm, Dry, normal turgor, no rashes or lesions noted. Limitations: no limitations Course Vital Signs 02/12/20 20:06 Temperature 98.7 F Pulse Rate 88 Respiratory 18 Rate Blood Pressure 136/91 O2 Sat by Pulse 98 Oximetry Medical Decision Making - Medical Decision Making Patient is a 39-year-old male here for a sore throat 2 days and requesting Covid testing. His exam reveals some mild tonsillar enlargement, very mild erythema, no exudate. His vitals are stable. Lasix exam is unremarkable. Strep test is Positive. Covid testing is pending. Patient will be started on penicillin, twice a day. First dose given in the ER tonight. He is stable for discharge. He can continue with Tylenol or Motrin for discomfort. He is in agreement with this plan of care. He is stable for discharge. - Lab Data Lab Results 02/12/20 Range/Units 21:12 Group A Strep Rapid Positive A (Negative) Disposition Clinical Impression: Strep pharyngitis Disposition: HOME SELF-CARE Condition: Stable Instructions (If sedation given, give patient instructions): Strep Throat (ED) Additional Instructions: Please return to the Emergency Department if symptoms worsen or any other concerns. Take antibiotic as prescribed. Take Tylenol or Motrin for discomfort. Covid test is pending. Prescriptions: Penicillin V Potassium [Pen Vee K] 500 mg PO BID 10 Days #19 tablet Is patient prescribed a controlled substance at d/c from ED?: No Referrals: Yenifer Brown MD [Primary Care Provider] - 1-2 days
[2020-02-12] MEDS ORDERED: PENICILLIN V POTASSIUM 250 MG TAB PO STA (21:35)
[2020-02-12 22:06] VITALS: BP 133/89; PULSE 86; TEMP 98.8
== END 2020-02-12 21:54 | disposition home or self-care (01) ==
LOC: EC 19:58
DX: J02.0 Streptococcal pharyngitis (principal); Z20.828 Contact with and (suspected) exposure to other viral communicable diseases
CPT/HCPCS: 87430; 99283; U0003

== ENCOUNTER 2020-04-06 00:24 | Emergency (ER) | payer OTHER ==
[2020-04-06 00:35] VITALS: RESP 18
[2020-04-06] MEDS ORDERED: ONDANSETRON ODT 4 MG TAB PO STA (00:51)
[2020-04-06] MEDS ORDERED: ALBUTEROL NEBULIZED 2.5 MG/3 ML INHALATION STA (00:51)
--- NOTE | 2020-04-06 00:55 | ED ---
General Adult HPI - General Chief complaint: Upper Respiratory Infection Stated complaint: Vomiting, headache Time Seen by Provider: 04/06/20 00:37 Source: patient Mode of arrival: ambulatory Limitations: no limitations - History of Present Illness Initial comments: This patient is 39-year-old man who presents to be evaluated for cough, substernal burning, and post tussive vomiting. Patient states she had been in his usual state of health when he went to work this afternoon. He had some smoke exposure there at around 10 PM and then shortly after started noticing that he was coughing, and felt like there was some substernal burning, and he was vomiting up some phlegm with the cough. The patient states she does frequently have what he terms is ALLERGIC reactions to smoke. The patient has not had any upper congestion. No fevers or chills. No change in urination or bowel movements. No leg pain or swelling. MD Complaint: 2 -: hour(s) Location: chest Radiation: non-radiation Quality: burning Consistency: constant Improves with: none Worsens with: other (Coughing) Associated Symptoms: chest pain, cough, nausea/vomiting Treatments Prior to Arrival: none - Related Data Previous Rx's Medication Instructions Recorded Penicillin V Potassium [Pen Vee K] 500 mg PO BID 10 Days #19 tablet 02/12/20 Allergies Allergy/AdvReac Type Severity Reaction Status Date / Time No Known Allergies Allergy Verified 04/06/20 00:35 Review of Systems ROS Statement: Those systems with pertinent positive or pertinent negative responses have been documented in the HPI. ROS Other: All systems not noted in ROS Statement are negative. Constitutional: Denies: fever, chills ENT: Denies: throat pain, congestion Respiratory: Reports: as per HPI, cough. Denies: dyspnea, wheezes, hemoptysis Cardiovascular: Reports: as per HPI, chest pain. Denies: palpitations, dyspnea on exertion, orthopnea, syncope Gastrointestinal: Reports: nausea, vomiting. Denies: abdominal pain, diarrhea, hematemesis Genitourinary: Denies: dysuria, hematuria Musculoskeletal: Denies: back pain Skin: Denies: rash Neurological: Denies: headache, weakness, numbness Past Medical History Past Medical History: No Reported History Additional Past Medical History / Comment(s): migraine hobbs History of Any Multi-Drug Resistant Organisms: None Reported Past Surgical History: No Surgical Hx Reported Past Psychological History: No Psychological Hx Reported Smoking Status: Never smoker Past Alcohol Use History: None Reported Past Drug Use History: None Reported General Exam Limitations: no limitations General appearance: alert, in no apparent distress Head exam: Present: atraumatic, normocephalic Eye exam: Present: normal appearance ENT exam: Present: normal oropharynx Neck exam: Present: normal inspection Respiratory exam: Present: wheezes (Trace expiratory wheeze). Absent: respiratory distress, rales, rhonchi, stridor, chest wall tenderness, accessory muscle use, decreased breath sounds Cardiovascular Exam: Present: regular rate, normal rhythm, normal heart sounds. Absent: systolic murmur, diastolic murmur, rubs, gallop GI/Abdominal exam: Present: soft. Absent: distended, tenderness, guarding, rebound Extremities exam: Present: normal inspection, normal capillary refill. Absent: pedal edema Back exam: Present: normal inspection. Absent: CVA tenderness (R), CVA tenderness (L) Neurological exam: Present: alert Skin exam: Present: warm, dry, intact, normal color. Absent: rash Course Vital Signs 04/06/20 04/06/20 04/06/20 00:32 01:27 01:56 Temperature 98.6 F Pulse Rate 106 H 100 97 Respiratory 18 Rate Blood Pressure 142/88 O2 Sat by Pulse 96 Oximetry Disposition Clinical Impression: Bronchitis Disposition: HOME SELF-CARE Condition: Good Instructions (If sedation given, give patient instructions): Acute Bronchitis (ED) Is patient prescribed a controlled substance at d/c from ED?: No Referrals: Yenifer Brown MD [Primary Care Provider] - 1-2 days
--- NOTE | 2020-04-06 01:18 | XR ---
EXAM: XR Chest, 2 Views CLINICAL HISTORY: ITS.REASON XR Reason: cough TECHNIQUE: Frontal and lateral views of the chest. COMPARISON: 09/08/2018 FINDINGS: Lungs: Unremarkable. No consolidation. Pleural space: Unremarkable. No pneumothorax. Heart: Unremarkable. No cardiomegaly. Mediastinum: Unremarkable. Bones/joints: Unremarkable. IMPRESSION: No acute pulmonary process.
[2020-04-06 01:57] VITALS: PULSE 97
[2020-04-06 02:45] VITALS: BP 131/71; TEMP 98
== END 2020-04-06 02:38 | disposition home or self-care (01) ==
LOC: EC 00:24
DX: J40 Bronchitis, not specified as acute or chronic (principal)
CPT/HCPCS: 71046; 94640; 99284

== ENCOUNTER 2020-05-27 13:25 | Emergency (ER) | payer OTHER ==
[2020-05-27 13:57] VITALS: RESP 20; TEMP 99
--- NOTE | 2020-05-27 13:58 | ED ---
URI HPI - General Stated Complaint: Pneumonia Time Seen by Provider: 05/27/20 13:53 Source: patient, RN notes reviewed Mode of arrival: ambulatory Limitations: no limitations - History of Present Illness Initial Comments: 39-year-old male presents emergency Department chief complaint of cough congestion. Patient states she was diagnosed with pneumonia on 05/22/2020. Patient was discharged on Levaquin. Patient states he was seen at [facility]. Patient states that his covid test was negative for the time. He continues to have productive cough, bodyaches chills fevers. Patient is a nonsmoker. Patient has known drug ALLERGIES. - Related Data Previous Rx's Medication Instructions Recorded Penicillin V Potassium [Pen Vee K] 500 mg PO BID 10 Days #19 tablet 02/12/20 Allergies Allergy/AdvReac Type Severity Reaction Status Date / Time No Known Allergies Allergy Verified 04/06/20 00:35 Review of Systems ROS Statement: Those systems with pertinent positive or pertinent negative responses have been documented in the HPI. ROS Other: All systems not noted in ROS Statement are negative. Past Medical History Past Medical History: No Reported History Additional Past Medical History / Comment(s): migraine hobbs History of Any Multi-Drug Resistant Organisms: None Reported Past Surgical History: No Surgical Hx Reported Past Psychological History: No Psychological Hx Reported Smoking Status: Never smoker Past Alcohol Use History: None Reported Past Drug Use History: None Reported General Exam General appearance: alert, in no apparent distress Head exam: Present: atraumatic, normocephalic, normal inspection Neck exam: Present: normal inspection, full ROM. Absent: tenderness, lymphadenopathy Respiratory exam: Present: decreased breath sounds. Absent: normal lung sounds bilaterally, respiratory distress, wheezes, rales, rhonchi, stridor Cardiovascular Exam: Present: regular rate, normal rhythm, normal heart sounds. Absent: systolic murmur, diastolic murmur, rubs, gallop, clicks Course Vital Signs 05/27/20 13:54 Temperature 99.0 F Pulse Rate 105 H Respiratory 20 Rate Blood Pressure 135/84 O2 Sat by Pulse 98 Oximetry Medical Decision Making - Medical Decision Making X-rays unremarkable. Patient is positive for covid. Patient vitals are stable. Patient has no hypoxia. Patient discharged. - Lab Data Lab Results 05/27/20 Range/Units 13:57 Coronavirus (PCR) Detected A (Not Detectd) Disposition Clinical Impression: COVID-19 Disposition: HOME SELF-CARE Condition: Stable Instructions (If sedation given, give patient instructions): Coronavirus Disease 2019 (COVID-19) Additional Instructions: Please return to the Emergency Department if symptoms worsen or any other concerns. Is patient prescribed a controlled substance at d/c from ED?: No Referrals: Yenifer Brown MD [Primary Care Provider] - 1-2 days Time of Disposition: 15:19
--- NOTE | 2020-05-27 14:49 | XR ---
EXAMINATION TYPE: XR chest 2V DATE OF EXAM: 05/27/2020 COMPARISON: 04/06/2020 INDICATION: Cough, pneumonia history TECHNIQUE: Frontal and lateral views of the chest are obtained. FINDINGS: The heart size is normal. The pulmonary vasculature is normal. No suspicious infiltrates are evident. A couple of punctate nodularities may be at the right base pre sent previously. IMPRESSION: 1. No acute pulmonary process.
[2020-05-27 15:36] VITALS: BP 136/78; PULSE 96
== END 2020-05-27 15:35 | disposition home or self-care (01) ==
LOC: EC 13:25
DX: U07.1 COVID-19 (principal)
CPT/HCPCS: 71046; 87635; 99283

== ENCOUNTER 2020-05-30 20:53 | Emergency (ER) | payer OTHER ==
[2020-05-30] MEDS ORDERED: SODIUM CHLORIDE 0.9% 1,000 ML IV STA (21:22)
--- NOTE | 2020-05-30 21:30 | ED ---
SOB HPI - General Chief Complaint: Shortness of Breath Stated Complaint: Covid+ Time Seen by Provider: 05/30/20 21:13 Source: patient, RN notes reviewed Mode of arrival: wheelchair Limitations: no limitations - History of Present Illness Initial Comments: 39-year-old white male alert and oriented 4 presents to the emergency room after being seen for same complaints on May 27 when he was diagnosed with covid. Patient states had a family member covid positive on May 22. Patient states not feeling better, continues to have fever, dyspnea, cough, nausea and vomiting. Patient states now pain has pain to the left chest, sore throat, also migraine headache. Patient denies diarrhea, states feels like he can't breathe and its getting worse. MD Complaint: shortness of breath, cough, chest pain, pain with inspiration -: days(s) (6) Radiation: back, other (left side chest) Consistency: constant Improves With: nothing Worsens With: coughing, inspiration Context: other (covid + on 05/27) Associated Symptoms: chest pain, pain with inspiration, fever, cough, nausea/vomiting Treatments Prior to Arrival: none - Related Data Home Oxygen Therapy: No Home Medications Medication Instructions Recorded Confirmed Acetaminophen [Tylenol Extra 1,000 mg PO Q6H PRN 05/30/20 05/30/20 Strength] Albuterol Sulfate [Proair Hfa] 2 puff INHALATION RT-Q6H PRN 05/30/20 05/30/20 Levofloxacin [Levaquin] 750 mg PO DAILY 05/30/20 05/30/20 tiZANidine HCL 4 mg PO Q6H PRN 05/30/20 05/30/20 Previous Rx's Medication Instructions Recorded Ibuprofen [Motrin] 800 mg PO Q8HR PRN #30 tab 05/30/20 Allergies Allergy/AdvReac Type Severity Reaction Status Date / Time No Known Allergies Allergy Verified 05/30/20 22:05 Review of Systems ROS Statement: Those systems with pertinent positive or pertinent negative responses have been documented in the HPI. ROS Other: All systems not noted in ROS Statement are negative. Past Medical History Past Medical History: No Reported History Additional Past Medical History / Comment(s): migraine hobbs History of Any Multi-Drug Resistant Organisms: None Reported Past Surgical History: No Surgical Hx Reported Past Psychological History: No Psychological Hx Reported Smoking Status: Never smoker Past Alcohol Use History: None Reported Past Drug Use History: None Reported General Exam Limitations: no limitations General appearance: alert, anxious Head exam: Present: atraumatic, normocephalic, normal inspection Eye exam: Present: normal appearance, PERRL, EOMI. Absent: scleral icterus, conjunctival injection, periorbital swelling ENT exam: Present: normal exam, mucous membranes moist Neck exam: Present: normal inspection, full ROM. Absent: tenderness, meningismus, lymphadenopathy Respiratory exam: Present: normal lung sounds bilaterally. Absent: respiratory distress, wheezes, rales, rhonchi, stridor Cardiovascular Exam: Present: normal rhythm, tachycardia, normal heart sounds. Absent: systolic murmur, diastolic murmur, rubs, gallop, clicks, JVD GI/Abdominal exam: Present: soft, normal bowel sounds. Absent: distended, tenderness, guarding, rebound, rigid Neurological exam: Present: alert, oriented X3, CN II-XII intact Psychiatric exam: Present: anxious Skin exam: Present: warm, dry, intact, normal color. Absent: rash, cyanosis, diaphoretic Course Vital Signs 05/30/20 20:59 Temperature 102.1 F H Pulse Rate 143 H Respiratory 26 H Rate Blood Pressure 114/70 O2 Sat by Pulse 95 Oximetry - Reevaluation(s) Reevaluation #1: 05/30/20 22:56 Patient resting more comfortably, heart rate down to 106, oxygen saturation 95% on room air, nausea resolved, patient feeling better Time: 22:56 Medical Decision Making - Medical Decision Making EKG shows sinus tach, patient with fever 102 at the time. Chest x-ray shows no masses no heart failure, does show bilateral lower lobe infiltrates new from exam done on May 27 2020. WBC count 7.2, d-dimer 0.45, troponin 0.012, lactic acid 3.5 which patient was given 1 L bolus of normal saline IV. She directed to return to the emergency room first any shortness of breath and to follow up with primary care doctor this week. Case discussed with who is agreeable to this plan. - Lab Data Result diagrams: 05/30/20 21:28 05/30/20 21:28 Lab Results 05/30/20 05/30/20 05/30/20 Range/Units 21:28 21:28 21:28 WBC 7.2 (3.8-10.6) k/uL RBC 5.79 (4.30-5.90) m/uL Hgb 15.9 (13.0-17.5) gm/dL Hct 47.7 (39.0-53.0) % MCV 82.4 (80.0-100.0) fL MCH 27.5 (25.0-35.0) pg MCHC 33.4 (31.0-37.0) g/dL RDW 13.4 (11.5-15.5) % Plt Count 159 (150-450) k/uL MPV 9.2 Neutrophils % 68 % Lymphocytes % 25 % Monocytes % 5 % Eosinophils % 0 % Basophils % 1 % Neutrophils # 4.8 (1.3-7.7) k/uL Lymphocytes # 1.8 (1.0-4.8) k/uL Monocytes # 0.3 (0-1.0) k/uL Eosinophils # 0.0 (0-0.7) k/uL Basophils # 0.1 (0-0.2) k/uL PT 10.2 (9.0-12.0) sec INR 0.9 (<1.2) APTT 28.3 (22.0-30.0) sec D-Dimer 0.45 (<0.60) mg/L FEU Sodium 139 (137-145) mmol/L Potassium 4.2 (3.5-5.1) mmol/L Chloride 104 (98-107) mmol/L Carbon Dioxide 22 (22-30) mmol/L Anion Gap 13 mmol/L BUN 11 (9-20) mg/dL Creatinine 0.94 (0.66-1.25) mg/dL Est GFR (CKD-EPI)AfAm >90 (>60 ml/min/1.73 sqM) Est GFR (CKD-EPI)NonAf >90 (>60 ml/min/1.73 sqM) Glucose 112 H (74-99) mg/dL Plasma Lactic Acid Jaylan (0.7-2.0) mmol/L Calcium 8.7 (8.4-10.2) mg/dL Magnesium 1.9 (1.6-2.3) mg/dL Total Bilirubin 0.5 (0.2-1.3) mg/dL AST 35 (17-59) U/L ALT 17 (4-49) U/L Alkaline Phosphatase 58 (38-126) U/L Troponin I (0.000-0.034) ng/mL Total Protein 7.1 (6.3-8.2) g/dL Albumin 4.1 (3.5-5.0) g/dL 05/30/20 05/30/20 Range/Units 21:28 21:28 WBC (3.8-10.6) k/uL RBC (4.30-5.90) m/uL Hgb (13.0-17.5) gm/dL Hct (39.0-53.0) % MCV (80.0-100.0) fL MCH (25.0-35.0) pg MCHC (31.0-37.0) g/dL RDW (11.5-15.5) % Plt Count (150-450) k/uL MPV Neutrophils % % Lymphocytes % % Monocytes % % Eosinophils % % Basophils % % Neutrophils # (1.3-7.7) k/uL Lymphocytes # (1.0-4.8) k/uL Monocytes # (0-1.0) k/uL Eosinophils # (0-0.7) k/uL Basophils # (0-0.2) k/uL PT (9.0-12.0) sec INR (<1.2) APTT (22.0-30.0) sec D-Dimer (<0.60) mg/L FEU Sodium (137-145) mmol/L Potassium (3.5-5.1) mmol/L Chloride (98-107) mmol/L Carbon Dioxide (22-30) mmol/L Anion Gap mmol/L BUN (9-20) mg/dL Creatinine (0.66-1.25) mg/dL Est GFR (CKD-EPI)AfAm (>60 ml/min/1.73 sqM) Est GFR (CKD-EPI)NonAf (>60 ml/min/1.73 sqM) Glucose (74-99) mg/dL Plasma Lactic Acid Jaylan 3.5 H* (0.7-2.0) mmol/L Calcium (8.4-10.2) mg/dL Magnesium (1.6-2.3) mg/dL Total Bilirubin (0.2-1.3) mg/dL AST (17-59) U/L ALT (4-49) U/L Alkaline Phosphatase (38-126) U/L Troponin I <0.012 (0.000-0.034) ng/mL Total Protein (6.3-8.2) g/dL Albumin (3.5-5.0) g/dL - EKG Data EKG shows normal: sinus rhythm, intervals (Sinus tachycardia with ventricular rate of 110, [place] interval 0.15, QRS of 0.82, QTC of .43) Disposition Clinical Impression: COVID-19, Viral pneumonia Disposition: HOME SELF-CARE Condition: Fair Instructions (If sedation given, give patient instructions): Viral Pneumonia (ED), Coronavirus Disease 2019 (COVID-19) Prescriptions: Ibuprofen [Motrin] 800 mg PO Q8HR PRN #30 tab PRN Reason: Pain Is patient prescribed a controlled substance at d/c from ED?: No Referrals: Yenifer Brown MD [Primary Care Provider] - 1-2 days Time of Disposition: 23:03
[2020-05-30] MEDS ORDERED: ONDANSETRON 4 MG/2 ML VIAL IVP STA (21:37)
[2020-05-30] MEDS ORDERED: ACETAMINOPHEN TAB 325 MG TAB PO STA (22:07)
[2020-05-30] MEDS ORDERED: KETOROLAC 15 MG/ML 1 ML VIAL IVP STA (22:07)
--- NOTE | 2020-05-30 22:10 | XR ---
EXAMINATION TYPE: XR chest 2V DATE OF EXAM: 05/30/2020 COMPARISON: 05/27/2020 HISTORY: Difficulty breathing TECHNIQUE: 2 views FINDINGS: There is poor inspiration. There is coarse interstitial and airspace infiltrates at the timmy g bases. There are chest leads. There is no heart failure. There are no hilar masses. Heart size is n ormal. IMPRESSION: Bilateral lower lobe infiltrates are new compared to recent exam. No heart failure seen.
[2020-05-30 22:15] LABS: Basophils # (A) 0.1 k/uL (0-0.2); Basophils % (A) 1 %; Eosinophils % (A) 0 %; HCT 47.7 % (39.0-53.0); HGB 15.9 gm/dL (13.0-17.5); Lymphocytes # (A) 1.8 k/uL (1.0-4.8); Lymphocytes % (A) 25 %; MCH 27.5 pg (25.0-35.0); MCHC 33.4 g/dL (31.0-37.0); MCV 82.4 fL (80.0-100.0); Mean Platelet Volume 9.2; Monocytes # (A) 0.3 k/uL (0-1.0); Monocytes % (A) 5 %; Neutrophils # (A) 4.8 k/uL (1.3-7.7); Neutrophils % (A) 68 %; Platelet Count 159 k/uL (150-450); RBC 5.79 m/uL (4.30-5.90); RDW 13.4 % (11.5-15.5); WBC 7.2 k/uL (3.8-10.6)
[2020-05-30 22:28] LABS: INR 0.9 (<1.2)
[2020-05-30 22:29] LABS: D-Dimer 0.45 mg/L FEU (<0.60); Partial Thromboplastin Time 28.3 sec (22.0-30.0); Prothrombin Time 10.2 sec (9.0-12.0)
[2020-05-30 22:38] LABS: ALT 17 U/L (4-49); AST 35 U/L (17-59); African American GFR (CKD) >90 (>60 ml/min/1.73 sqM); Albumin 4.1 g/dL (3.5-5.0); Alkaline Phosphatase 58 U/L (38-126); Anion Gap 13 mmol/L; Blood Urea Nitrogen 11 mg/dL (9-20); Calcium 8.7 mg/dL (8.4-10.2); Carbon Dioxide 22 mmol/L (22-30); Chloride 104 mmol/L (98-107); Glucose 112 mg/dL (74-99); Magnesium 1.9 mg/dL (1.6-2.3); Non-African American GFR(CKD) >90 (>60 ml/min/1.73 sqM); Potassium 4.2 mmol/L (3.5-5.1); Sodium 139 mmol/L (137-145); Total Bilirubin 0.5 mg/dL (0.2-1.3); Total Protein 7.1 g/dL (6.3-8.2)
[2020-05-30 23:58] VITALS: BP 126/74; PULSE 100; RESP 18; TEMP 98.9
== END 2020-05-30 23:57 | disposition home or self-care (01) ==
LOC: EC 20:53
DX: U07.1 COVID-19 (principal); J12.81 Pneumonia due to SARS-associated coronavirus; Z79.1 Long term (current) use of non-steroidal anti-inflammatories (NSAID); Z79.899 Other long term (current) drug therapy
CPT/HCPCS: 36415; 93005; 85379; 80053; 83605; 83735; 84484; 85025; 85610; 85730; 71046; 99285; 96374; 96375; J2405; J1885

== ENCOUNTER 2020-07-27 14:25 | Emergency (ER) | payer OTHER ==
[2020-07-27 14:52] VITALS: BP 143/97; PULSE 87; RESP 16; TEMP 97.9
--- NOTE | 2020-07-27 19:10 | ED ---
Dizziness HPI - General Chief Complaint: Dizziness Stated Complaint: dizzines,fever Time Seen by Provider: 07/27/20 19:00 Source: patient Mode of arrival: wheelchair Limitations: no limitations - History of Present Illness Initial Comments: This patient is a 39-year-old man who presents to have evaluation for constellation of symptoms. Patient reports that he had been feeling like his usual state this morning. He then had gone out [place] was [place] the river [place] time this [place]. He had spent about an hour out in the sun and he began to feel some mild to moderate occipital headache, some lightheadedness, some nausea. Patient states however that since coming here to be evaluated HIS symptoms have resolved and he would just like to go home now. He declines to have any further workup. MD Complaint: dizziness, other -: hour(s) Timing: gradual onset Description: lightheadedness, nausea Severity: moderate Improves With: remaining still Worsens With: nothing Associated Symptoms: other - Related Data Home Medications Medication Instructions Recorded Confirmed Acetaminophen [Tylenol Extra 1,000 mg PO Q6H PRN 05/30/20 05/30/20 Strength] Albuterol Sulfate [Proair Hfa] 2 puff INHALATION RT-Q6H PRN 05/30/20 05/30/20 Levofloxacin [Levaquin] 750 mg PO DAILY 05/30/20 05/30/20 tiZANidine HCL 4 mg PO Q6H PRN 05/30/20 05/30/20 Previous Rx's Medication Instructions Recorded Ibuprofen [Motrin] 800 mg PO Q8HR PRN #30 tab 05/30/20 Allergies Allergy/AdvReac Type Severity Reaction Status Date / Time No Known Allergies Allergy Verified 07/27/20 14:51 Review of Systems ROS Statement: Those systems with pertinent positive or pertinent negative responses have been documented in the HPI. ROS Other: All systems not noted in ROS Statement are negative. Constitutional: Denies: fever, chills, weakness Eyes: Denies: eye pain, vision change ENT: Denies: ear pain Respiratory: Denies: cough, dyspnea Cardiovascular: Denies: chest pain, palpitations, dyspnea on exertion Gastrointestinal: Reports: nausea. Denies: abdominal pain, vomiting, diarrhea Genitourinary: Denies: dysuria Musculoskeletal: Denies: back pain Skin: Denies: rash Neurological: Reports: as per HPI, headache. Denies: weakness, numbness, paresthesias, confusion Past Medical History Past Medical History: No Reported History Additional Past Medical History / Comment(s): migraine hobbs History of Any Multi-Drug Resistant Organisms: None Reported Past Surgical History: No Surgical Hx Reported Past Psychological History: No Psychological Hx Reported Smoking Status: Never smoker Past Alcohol Use History: None Reported Past Drug Use History: None Reported General Exam Limitations: no limitations General appearance: alert, in no apparent distress Head exam: Present: atraumatic, normocephalic Eye exam: Present: normal appearance, PERRL, EOMI. Absent: scleral icterus, conjunctival injection ENT exam: Present: normal oropharynx Neck exam: Present: normal inspection, full ROM. Absent: tenderness, meningismus Respiratory exam: Present: normal lung sounds bilaterally. Absent: respiratory distress, wheezes, rales, rhonchi, stridor Cardiovascular Exam: Present: regular rate, normal rhythm, normal heart sounds. Absent: systolic murmur, diastolic murmur, rubs, gallop GI/Abdominal exam: Present: soft. Absent: distended, tenderness, guarding, rebound, rigid, mass Extremities exam: Present: normal inspection, normal capillary refill. Absent: pedal edema, calf tenderness Back exam: Present: normal inspection Neurological exam: Present: alert, oriented X3, CN II-XII intact. Absent: motor sensory deficit Skin exam: Present: warm, dry, intact, normal color. Absent: rash Course Vital Signs 07/27/20 14:49 Temperature 97.9 F Pulse Rate 87 Respiratory 16 Rate Blood Pressure 143/97 O2 Sat by Pulse 99 Oximetry Disposition Clinical Impression: Heat effects Disposition: HOME SELF-CARE Condition: Good Instructions (If sedation given, give patient instructions): Acute Headache (ED) Is patient prescribed a controlled substance at d/c from ED?: No Referrals: Yenifer Brown MD [Primary Care Provider] - 1-2 days
== END 2020-07-27 19:15 | disposition home or self-care (01) ==
LOC: EC 14:25
DX: T67.8XXA Other effects of heat and light, initial encounter (principal)
CPT/HCPCS: 99283

== ENCOUNTER 2021-03-20 08:41 | Emergency (ER) | payer OTHER ==
[2021-03-20 08:48] VITALS: TEMP 98.1
[2021-03-20] MEDS ORDERED: SODIUM CHLORIDE 0.9% 1,000 ML IV STA (09:26)
[2021-03-20] MEDS ORDERED: ONDANSETRON 4 MG/2 ML VIAL IVP STA ×2 (09:26→12:35)
[2021-03-20] MEDS ORDERED: PANTOPRAZOLE 40 MG/10 ML VIAL IVP STA (09:26)
[2021-03-20 09:55] LABS: Basophils % (A) 0 %; Eosinophils # (A) 0.1 k/uL (0-0.7); Eosinophils % (A) 0 %; Lymphocytes # (A) 0.8 k/uL (1.0-4.8); Lymphocytes % (A) 4 %; MCH 28.2 pg (25.0-35.0); MCHC 33.2 g/dL (31.0-37.0); MCV 84.9 fL (80.0-100.0); Mean Platelet Volume 9.6; Monocytes # (A) 0.8 k/uL (0-1.0); Monocytes % (A) 4 %; Neutrophils # (A) 17.4 k/uL (1.3-7.7); Neutrophils % (A) 91 %; Platelet Count 190 k/uL (150-450); Prothrombin Time 10.8 sec (9.0-12.0); RBC 5.66 m/uL (4.30-5.90); RDW 13.5 % (11.5-15.5); WBC 19.2 k/uL (3.8-10.6)
[2021-03-20 09:57] LABS: ALT 48 U/L (4-49); AST 43 U/L (17-59); African American GFR (CKD) >90 (>60 ml/min/1.73 sqM); Albumin 4.3 g/dL (3.5-5.0); Alkaline Phosphatase 49 U/L (38-126); Anion Gap 9 mmol/L; Blood Urea Nitrogen 17 mg/dL (9-20); Calcium 9.5 mg/dL (8.4-10.2); Carbon Dioxide 23 mmol/L (22-30); Chloride 106 mmol/L (98-107); Glucose 152 mg/dL (74-99); Lipase 68 U/L (23-300); Non-African American GFR(CKD) >90 (>60 ml/min/1.73 sqM); Sodium 138 mmol/L (137-145); Total Protein 7.5 g/dL (6.3-8.2)
[2021-03-20 10:02] LABS: Potassium 4.5 mmol/L (3.5-5.1)
--- NOTE | 2021-03-20 10:24 | ED ---
General Adult HPI - General Chief complaint: Nausea/Vomiting/Diarrhea Stated complaint: Nausea/Vomiting Time Seen by Provider: 03/20/21 08:52 Source: patient Mode of arrival: ambulatory Limitations: no limitations - History of Present Illness Initial comments: 40-year-old male presents emergency room with reported vomiting since 4 AM. is at bedside and provides the history. States that he woke up and has had close to 8 episodes of vomiting. Denies bloody emesis. They did eat the same dinner last night so denies any tainted foods. No other sick contacts. Patient admits to some generalized abdominal pain from retching. Denies any black or bloody stools. No diarrhea or constipation. Patient denies any medical problems. Patient took Tums at home without improvement. No covid exposure. No other alleviating, precipitating or modifying factors - Related Data Home Medications Medication Instructions Recorded Confirmed Famotidine 20 mg PO BID 03/20/21 03/20/21 Previous Rx's Medication Instructions Recorded Famotidine 20 mg PO BID #60 tab 03/20/21 Omeprazole 40 mg PO HS #30 cap 03/20/21 Ondansetron Odt [Zofran Odt] 4 mg PO Q8HR PRN #10 tab 03/20/21 Allergies Allergy/AdvReac Type Severity Reaction Status Date / Time No Known Allergies Allergy Verified 03/20/21 11:16 Review of Systems ROS Statement: Those systems with pertinent positive or pertinent negative responses have been documented in the HPI. ROS Other: All systems not noted in ROS Statement are negative. Past Medical History Past Medical History: No Reported History Additional Past Medical History / Comment(s): migraine hobbs History of Any Multi-Drug Resistant Organisms: None Reported Past Surgical History: No Surgical Hx Reported Past Psychological History: No Psychological Hx Reported Smoking Status: Never smoker Past Alcohol Use History: None Reported Past Drug Use History: None Reported General Exam Limitations: no limitations Course Vital Signs 03/20/21 03/20/21 08:45 13:05 Temperature 98.1 F Pulse Rate 107 H 97 Respiratory 22 20 Rate Blood Pressure 127/79 122/72 O2 Sat by Pulse 96 98 Oximetry EKG Findings - EKG Comments: EKG Findings:: EKG demonstrates a normal sinus rhythm with a ventricular rate of 98. VA interval 160. QRS 86. QTC of 446. No acute ST segment elevations or depressions concerning for ischemic changes Medical Decision Making - Medical Decision Making Upon arrival patient was placed into room 7. A thorough history and physical exam is performed. IV is established and laboratory studies were conducted. White count 19.2. Glucose 152. Covid not detected. Chest x-ray demonstrates no acute critical nerve process. CT abdomen and pelvis demonstrates signs concerning for enteritis. Patient reevaluated and does have some nausea. He is given a dose of Reglan and Benadryl Benadryl. Patient is able to sleep for a short period of time. Laboratory studies and imaging results are discussed the patient and his significant other at bedside. The patient will be discharged ho ms at this time with a prescription for famotidine, omeprazole and Zofran. He is instructed to take the medications as directed and follow-up with his doctor in 2-4 days. Did recommend that the patient follow up with GI as he has had chronic issues with gastritis. Patient will require an EGD. If he has any new or worsening symptoms he should return to the emergency room. Patient was discharged home in stable condition - Lab Data Result diagrams: 03/20/21 09:36 03/20/21 09:36 Lab Results 03/20/21 03/20/21 03/20/21 Range/Units 09:11 09:36 09:36 WBC 19.2 H (3.8-10.6) k/uL RBC 5.66 (4.30-5.90) m/uL Hgb 16.0 (13.0-17.5) gm/dL Hct 48.0 (39.0-53.0) % MCV 84.9 (80.0-100.0) fL MCH 28.2 (25.0-35.0) pg MCHC 33.2 (31.0-37.0) g/dL RDW 13.5 (11.5-15.5) % Plt Count 190 (150-450) k/uL MPV 9.6 Neutrophils % 91 % Lymphocytes % 4 % Monocytes % 4 % Eosinophils % 0 % Basophils % 0 % Neutrophils # 17.4 H (1.3-7.7) k/uL Lymphocytes # 0.8 L (1.0-4.8) k/uL Monocytes # 0.8 (0-1.0) k/uL Eosinophils # 0.1 (0-0.7) k/uL Basophils # 0.0 (0-0.2) k/uL PT (9.0-12.0) sec INR (<1.2) APTT (22.0-30.0) sec Sodium 138 (137-145) mmol/L Potassium 4.5 (3.5-5.1) mmol/L Chloride 106 (98-107) mmol/L Carbon Dioxide 23 (22-30) mmol/L Anion Gap 9 mmol/L BUN 17 (9-20) mg/dL Creatinine 0.90 (0.66-1.25) mg/dL Est GFR (CKD-EPI)AfAm >90 (>60 ml/min/1.73 sqM) Est GFR (CKD-EPI)NonAf >90 (>60 ml/min/1.73 sqM) Glucose 152 H (74-99) mg/dL Calcium 9.5 (8.4-10.2) mg/dL Total Bilirubin 1.0 (0.2-1.3) mg/dL AST 43 (17-59) U/L ALT 48 (4-49) U/L Alkaline Phosphatase 49 (38-126) U/L Troponin I (0.000-0.034) ng/mL Total Protein 7.5 (6.3-8.2) g/dL Albumin 4.3 (3.5-5.0) g/dL Lipase 68 (23-300) U/L Urine Color Urine Appearance (Clear) Urine pH (5.0-8.0) Ur Specific [place] (1.001-1.035) Urine Protein (Negative) Urine Glucose (UA) (Negative) Urine Ketones (Negative) Urine Blood (Negative) Urine Nitrite (Negative) Urine Bilirubin (Negative) Urine Urobilinogen (<2.0) mg/dL Ur Leukocyte Esterase (Negative) Coronavirus (PCR) Not Detected (Not Detectd) 03/20/21 03/20/21 03/20/21 Range/Units 09:36 09:36 10:50 WBC (3.8-10.6) k/uL RBC (4.30-5.90) m/uL Hgb (13.0-17.5) gm/dL Hct (39.0-53.0) % MCV (80.0-100.0) fL MCH (25.0-35.0) pg MCHC (31.0-37.0) g/dL RDW (11.5-15.5) % Plt Count (150-450) k/uL MPV Neutrophils % % Lymphocytes % % Monocytes % % Eosinophils % % Basophils % % Neutrophils # (1.3-7.7) k/uL Lymphocytes # (1.0-4.8) k/uL Monocytes # (0-1.0) k/uL Eosinophils # (0-0.7) k/uL Basophils # (0-0.2) k/uL PT 10.8 (9.0-12.0) sec INR 1.0 (<1.2) APTT 24.0 (22.0-30.0) sec Sodium (137-145) mmol/L Potassium (3.5-5.1) mmol/L Chloride (98-107) mmol/L Carbon Dioxide (22-30) mmol/L Anion Gap mmol/L BUN (9-20) mg/dL Creatinine (0.66-1.25) mg/dL Est GFR (CKD-EPI)AfAm (>60 ml/min/1.73 sqM) Est GFR (CKD-EPI)NonAf (>60 ml/min/1.73 sqM) Glucose (74-99) mg/dL Calcium (8.4-10.2) mg/dL Total Bilirubin (0.2-1.3) mg/dL AST (17-59) U/L ALT (4-49) U/L Alkaline Phosphatase (38-126) U/L Troponin I <0.012 (0.000-0.034) ng/mL Total Protein (6.3-8.2) g/dL Albumin (3.5-5.0) g/dL Lipase (23-300) U/L Urine Color Yellow Urine Appearance Clear (Clear) Urine pH 8.0 (5.0-8.0) Ur Specific [place] 1.025 (1.001-1.035) Urine Protein Trace H (Negative) Urine Glucose (UA) Negative (Negative) Urine Ketones Negative (Negative) Urine Blood Negative (Negative) Urine Nitrite Negative (Negative) Urine Bilirubin Negative (Negative) Urine Urobilinogen <2.0 (<2.0) mg/dL Ur Leukocyte Esterase Negative (Negative) Coronavirus (PCR) (Not Detectd) Disposition Clinical Impression: Nausea & vomiting, Gastritis Disposition: HOME SELF-CARE Condition: Stable Instructions (If sedation given, give patient instructions): Acute Nausea and Vomiting (ED) Additional Instructions: Please follow up with your primary care doctor within 2-4 days. You need to follow up with Dr. Terrazas for possible EGD and colonoscopy. Take the medications as directed and return for any new or worsening symptoms Prescriptions: Famotidine 20 mg PO BID #60 tab Omeprazole 40 mg PO HS #30 cap Ondansetron Odt [Zofran Odt] 4 mg PO Q8HR PRN #10 tab PRN Reason: Nausea Is patient prescribed a controlled substance at d/c from ED?: No Referrals: Yenifer Brown MD [Primary Care Provider] - 1-2 days Denisha Terrazas MD [STAFF PHYSICIAN] - 1-2 days Time of Disposition: 12:41
--- NOTE | 2021-03-20 10:25 | XR ---
EXAMINATION TYPE: XR chest 2V DATE OF EXAM: 03/20/2021 COMPARISON: Chest x-ray 05/30/2020 HISTORY: Pain, heartburn TECHNIQUE: Frontal and lateral views of the chest are obtained. FINDINGS: There is no focal air space opacity, pleural effusion, or pneumothorax seen. The cardiac silhouette size is within normal limits. Lung volumes are low. Right hemidiaphragm is mildly elevated as on prior. The osseous structures are intact. IMPRESSION: No acute cardiopulmonary process.
[2021-03-20] MEDS ORDERED: METOCLOPRAMIDE 5 MG/ML 2 ML VIAL IVP STA (10:44)
[2021-03-20] MEDS ORDERED: diphenhydrAMINE 50 MG/ML 1 ML VIAL IVP STA (10:44)
[2021-03-20 11:41] LABS: Appearance,Urine Clear (Clear); Bilirubin,Urine Negative (Negative); Blood,Urine Negative (Negative); Color,Urine Yellow; Glucose,Urine (UA) Negative (Negative); Ketones,Urine Negative (Negative); Leukocyte Esterase,Urine Negative (Negative); Nitrite,Urine Negative (Negative); Protein,Urine Trace (Negative); Specific Gravity,Urine 1.025 (1.001-1.035); Urobilinogen,Urine <2.0 mg/dL (<2.0)
--- NOTE | 2021-03-20 12:09 | CT ---
EXAMINATION TYPE: CT abdomen pelvis w con DATE OF EXAM: 03/20/2021 COMPARISON: None HISTORY: VOMITING SINCE [address] DLP: 1177.8 mGycm Automated exposure control for dose reduction was used. TECHNIQUE: Helical acquisition of images from the lung bases through the pelvis have been completed. CONTRAST: Performed without Oral Contrast and with IV Contrast, patient injected with 100 mL of Isovue 300. FINDINGS: LUNG BASES: Basilar atelectatic changes are present. There may be a hiatal hernia present. Some thick ening the distal esophagus is indeterminate. AORTA: No significant abnormality is appreciated. LIVER/GB: Multiple scattered low dense foci are the liver which statistically are likely represent cy sts, gallbladder is within normal limits PANCREAS: No significant abnormality is seen. SPLEEN: No significant abnormality is seen. ADRENALS: No significant abnormality is seen. KIDNEYS: No significant abnormality is seen. REPRODUCTIVE ORGANS: No significant abnormality is seen BOWEL: Small bowel show fluid-filled appearance with thickened wall. Questionable colonic wall thick ening, appendix is normal as seen. FREE AIR: No Free Air visible. ASCITES: None visible. PELVIC ADENOPATHY: None visualized. RETROPERITONEAL ADENOPATHY: No Retroperitoneal Adenopathy visible. URINARY BLADDER: No significant abnormality is seen. OSSEOUS STRUCTURES: No significant abnormality is seen. IMPRESSION: CORRELATE FOR ENTERITIS
[2021-03-20] MEDS ORDERED: ONDANSETRON 4 MG ODT STARTER PACK 2 TAB BTL PO STA (12:35)
[2021-03-20 13:07] VITALS: BP 122/72; PULSE 97; RESP 20
== END 2021-03-20 13:06 | disposition home or self-care (01) ==
LOC: EC 08:41
DX: K29.70 Gastritis, unspecified, without bleeding (principal); G43.909 Migraine, unspecified, not intractable, without status migrainosus
CPT/HCPCS: 36415; 93005; 80053; 83690; 84484; 85025; 85610; 85730; 81003; 87635; 71046; 74177; 99284; 96374; 96375 ×3; 96376; 96361; J1200; J2765; J2405; S0119; C9113; Q9967

== ENCOUNTER 2022-01-28 09:29 | Emergency (ER) | payer OTHER ==
[2022-01-28 09:47] VITALS: BP 146/93; PULSE 77; RESP 16; TEMP 98.6
[2022-01-28] MEDS ORDERED: HYDROcodone/APAP 5-325MG 1 EACH TAB PO STA (09:56)
[2022-01-28] MEDS ORDERED: ACET/COD 300 MG/30 MG STARTER PACK 6 TAB BTL PO STA (09:57)
--- NOTE | 2022-01-28 10:00 | ED ---
ENT HPI - General Chief complaint: Dental/Oral Stated complaint: Dental Pain Time Seen by Provider: 01/28/22 09:48 Source: patient, RN notes reviewed Mode of arrival: ambulatory Limitations: no limitations - History of Present Illness Initial comments: 41-year-old male presents emergency Department chief complaint dental pain. Patient states started over nighttime. Patient states he has poor dentition, dental Caries. Patient states that it's right upper. Patient states radiate up towards the ear. Has mild swelling multiple to swallow no difficulty opening closing his mouth other than mild discomfort. Patient denies fevers or chills no headache no neck pain or neck stiffness. - Related Data Home Medications Medication Instructions Recorded Confirmed Famotidine 20 mg PO BID 03/20/21 03/20/21 Previous Rx's Medication Instructions Recorded Famotidine 20 mg PO BID #60 tab 03/20/21 Omeprazole 40 mg PO HS #30 cap 03/20/21 Ondansetron Odt [Zofran Odt] 4 mg PO Q8HR PRN #10 tab 03/20/21 Amoxic-Pot Clav 875-125Mg 1 tab PO Q12HR #20 tab 01/28/22 [Augmentin 875-125] Ibuprofen [Motrin] 600 mg PO Q8HR PRN #30 tab 01/28/22 Allergies Allergy/AdvReac Type Severity Reaction Status Date / Time No Known Allergies Allergy Verified 01/28/22 09:46 Review of Systems ROS Statement: Those systems with pertinent positive or pertinent negative responses have been documented in the HPI. ROS Other: All systems not noted in ROS Statement are negative. Past Medical History Past Medical History: No Reported History Additional Past Medical History / Comment(s): migraine hobbs History of Any Multi-Drug Resistant Organisms: None Reported Past Surgical History: No Surgical Hx Reported Past Psychological History: No Psychological Hx Reported Smoking Status: Never smoker Past Alcohol Use History: None Reported Past Drug Use History: None Reported General Exam Limitations: no limitations General appearance: alert, in no apparent distress Head exam: Present: atraumatic, normocephalic, normal inspection Eye exam: Present: normal appearance, PERRL, EOMI. Absent: scleral icterus, conjunctival injection, periorbital swelling ENT exam: Present: mucous membranes moist, TM's normal bilaterally. Absent: normal oropharynx (Poor dentition, multiple dental caries noted, mild right facial swelling) Neck exam: Present: normal inspection, full ROM. Absent: tenderness, meningismus, lymphadenopathy Respiratory exam: Present: normal lung sounds bilaterally. Absent: respiratory distress, wheezes, rales, rhonchi, stridor Cardiovascular Exam: Present: regular rate, normal rhythm, normal heart sounds. Absent: systolic murmur, diastolic murmur, rubs, gallop, clicks Course Vital Signs 01/28/22 09:46 Temperature 98.6 F Pulse Rate 77 Respiratory 16 Rate Blood Pressure 146/93 O2 Sat by Pulse 98 Oximetry Medical Decision Making - Medical Decision Making Patient started on oral antibiotics, pain control with close follow-up return parameters were discussed. Disposition Clinical Impression: Toothache, Dental infection Disposition: HOME SELF-CARE Condition: Stable Instructions (If sedation given, give patient instructions): Toothache (ED) Additional Instructions: Please return to the Emergency Department if symptoms worsen or any other concerns. Prescriptions: Amoxic-Pot Clav 875-125Mg [Augmentin 875-125] 1 tab PO Q12HR #20 tab Ibuprofen [Motrin] 600 mg PO Q8HR PRN #30 tab PRN Reason: Pain Is patient prescribed a controlled substance at d/c from ED?: No Referrals: Yneifer Brown MD [Primary Care Provider] - 1-2 days Time of Disposition: 10:00
== END 2022-01-28 10:05 | disposition home or self-care (01) ==
LOC: EC 09:29
DX: K04.7 Periapical abscess without sinus (principal)
CPT/HCPCS: 99282